=== PATIENT | male | born 1980 | race Caucasian/White ===

== ENCOUNTER 2019-05-23 05:38 | Day surgery (SDC) | payer OTHER ==
[~2019-05-23 05:38] MED LIST: Buffered Lidocaine 1% SYRIN* 1 ML/SYRINGE INTRADERM ONE
[2019-05-23] MEDS ORDERED: Famotidine IV* 10 MG/ML 2 ML (20 mg) IV ONE (06:00)
[2019-05-23] MEDS ORDERED: Lactated Ringers 1000 ML Bag* 1,000 ML IV SCH (06:00)
[2019-05-23] MEDS ORDERED: Dexamethasone IV* 4 MG/ML 1 ML (4 MG) IV SLOW PU ONE (06:00)
[2019-05-23] MEDS ORDERED: Famotidine IV* 10 MG/ML 2 ML (20 mg) ONE (06:08)
[2019-05-23] MEDS ORDERED: Buffered Lidocaine 1% SYRIN* 1 ML/SYRINGE INTRADERM ONE (06:08)
[2019-05-23] MEDS ORDERED: Dexamethasone IV* 4 MG/ML 1 ML (4 MG) ONE (06:08)
[2019-05-23] MEDS ORDERED: ceFAZolin 2 GM in NS PREMIX(*) 2 GM/100 ML BAG IVPB ONE (06:08)
[2019-05-23 06:34] LABS: INR 0.86 (0.82-1.09)
[2019-05-23] MEDS ORDERED: Bupivacaine 0.5%* 50 ML MDV VIAL ONE (06:51)
[2019-05-23] MEDS ORDERED: fentaNYL* 50 MCG/ML 2 ML VIAL (100 MCG VIAL) ONE ×5 (06:53→10:46)
[2019-05-23] MEDS ORDERED: Midazolam* 1 MG/ML 5 ML VIAL (5 MG) ONE (06:54)
[2019-05-23] MEDS ORDERED: Propofol* 10 MG/ML 20 ML BTL ONE (06:54)
[2019-05-23] MEDS ORDERED: Lidocaine 2% PF * 5 ML VIAL ONE (06:54)
[2019-05-23] MEDS ORDERED: PROCHLORPERAZINE INJ 5 MG/ML 2 ML VIAL IV PRN (07:21)
[2019-05-23] MEDS ORDERED: Morphine 4 MG/ML VIAL (1 ml) 4 MG/ML VIAL IV PRN (07:21)
[2019-05-23] MEDS ORDERED: HYDROcodone/ACETAMIN 5-325 MG* 1 TAB PO PRN (07:21)
[2019-05-23] MEDS ORDERED: Naloxone* 0.4 MG/ML 1 ML VIAL IV PRN (07:21)
[2019-05-23] MEDS ORDERED: oxyCODONE/Acetamin 5/325 MG* TAB PO PRN (07:21)
[2019-05-23] MEDS ORDERED: Ketorolac INJ* 30 MG/ML 1 ML VIAL ONE (07:48)
[2019-05-23] MEDS ORDERED: Ondansetron INJ* 2 MG/ML VIAL ONE (09:37)
[2019-05-23] MEDS: fentaNYL* 50 MCG/ML 2 ML VIAL (100 MCG VIAL) IV PRN ×2 (10:49→10:58)
[2019-05-23 11:30] VITALS: BP 147/88
--- NOTE | 2019-05-23 21:30 | OP ---
DATE OF OPERATION: 05/23/19 [facility] DATE OF : 78 SURGEON: Víctor Neves MD. ASSISTANTS: Eder Bruno MD and Melisa Chowdhury PA-C. Dr. Bruno's presence was necessary for assistance with intraoperative fixation and preparation of joint surfaces and closure of the wound. PRE-OP DIAGNOSIS: Degenerative arthritis, left tibiotalar joint and loose hardware left mid foot. POST-OP DIAGNOSIS: Degenerative arthritis, left tibiotalar joint and loose hardware left mid foot. OPERATIVE PROCEDURE: Left tibiotalar fusion, tibial bone graft and hardware removal mid foot. DESCRIPTION OF PROCEDURE: The patient was taken to the operating room, where we opened up the previous longitudinal medial incision extending it then over to the anterior aspect of the ankle and directly up along the tibial crest. The hardware at the mid foot was easily identified with subperiosteal dissection , and the screws removed with appropriate screwdrivers as well as loose plate. Proximally, the retinaculum was incised over the anterior aspect of the tibial crest and the entire anterior compartment was swept laterally with a Miller elevator. We were then able to identify the tibiotalar joint, which was opened with a laminar sealer aircraft and a Miller elevator. We recessed the medial deltoid with a 15-blade and a Miller elevator dissection, and the fibula laterally was freed up along the syndesmosis and then a small osteotomy in an oblique fashion made under direct vision 6 cm above the joint surface. This further allowed wide opening of the tibiotalar joint which was prepared for arthrodesis using a curette and a power maryellen. Cultures were sent as well. Intraoperative Gram stain was negative for organisms seen. From the proximal tibial Gerdy's tubercle, 1 cm corticotomy was performed and harvested about 15 cc of cancellous bone. This was then replaced with cancellous chips with the periosteum closed with 2-0 Monocryl, subcu with 2-0 Monocryl and umair for the skin. The bone graft then was placed along the tibiotalar joint, which was then pinned with paired percutaneous pins from the medial malleolar side. One of these was exchanged for a lag screw 6.5 mm diameter partially threaded. This lagged the joint together and held in a stable position. We then took an anatomic anterior ankle fusion plate from the [employer] system and set this along the anterior aspect of the ankle joint. This was fixed with a combination of locking and nonlocking screws as well as the top down lag screw. X-rays intraoperatively showed some very good fixation and compression of the joint surfaces as well as neutral alignment obtained. Closure consisted of the 2-0 Monocryl sutures for the periosteum and the retinaculum, 3-0 Monocryl for the subcu and umair for the skin and a compression dressing plaster splint applied. [id number] #: [id number] MTDD
== END 2019-05-23 11:36 | disposition home or self-care (01) ==
LOC: OR 05:38
PROVIDERS: ATTEND Orthopaedic Surgery
DX: M19.172 Post-traumatic osteoarthritis, left ankle and foot (principal); F17.210 Nicotine dependence, cigarettes, uncomplicated
CPT/HCPCS: 36415; 76000; 85610; 87070; 87073; 87205; 88300; C1713; C1776; J0690; J1100; J1885; J2250; J2405; J2704; J3010; J3490